=== PATIENT | male | born 1980 | race Caucasian/White ===

== ENCOUNTER 2020-03-28 21:13 | Emergency (ER) | payer OTHER ==
[2020-03-28] MEDS ORDERED: SODIUM CHLORIDE 0.9% 500 ML 500 ML IV STA (22:16)
[2020-03-28 22:53] LABS: Basophils # (A) 0.2 k/uL (0-0.2); Basophils % (A) 2 %; Eosinophils # (A) 0.2 k/uL (0-0.7); Eosinophils % (A) 3 %; HCT 47.8 % (39.0-53.0); HGB 16.3 gm/dL (13.0-17.5); Lymphocytes # (A) 2.6 k/uL (1.0-4.8); Lymphocytes % (A) 31 %; MCH 30.7 pg (25.0-35.0); MCHC 34.1 g/dL (31.0-37.0); Mean Platelet Volume 7.2; Monocytes # (A) 0.5 k/uL (0-1.0); Monocytes % (A) 6 %; Neutrophils # (A) 4.7 k/uL (1.3-7.7); Neutrophils % (A) 56 %; Platelet Count 257 k/uL (150-450); RBC 5.31 m/uL (4.30-5.90); RDW 12.4 % (11.5-15.5); WBC 8.3 k/uL (3.8-10.6)
[2020-03-28] MEDS ORDERED: SULFAMETHOX-TMP 800-160MG 1 EACH TAB PO STA (23:04)
--- NOTE | 2020-03-28 23:06 | ED ---
General Adult HPI - General Source: patient, RN notes reviewed, old records reviewed Mode of arrival: ambulatory Limitations: no limitations <Brandon Edwards - Last Filed: 03/28/20 23:14> <Raegan Sultana - Last Filed: 03/29/20 00:49> - General Chief complaint: Skin/Abscess/Foreign Body Stated complaint: Cellulitis Time Seen by Provider: 03/28/20 21:28 - History of Present Illness Initial comments: 39-year-old male patient with past medical history of a perirectal abscess number of years ago requiring IV antibiotics and incision drainage to ED. Patient reports that the last 6 months she's been having drainage in his perirectal region. Patient states that the hole is still open from the initial incision and drainage. Denies any other complaints. Systemic: Pt denies fatigue, fever/chills, rash. Pt denies weakness, night sweats, weight loss. Neuro: Pt denies headache, visual disturbances, syncope or pre-syncope. HEENT: Pt denies ocular discharge or irritation, otalgia, rhinorrhea, pharyngitis or notable lymphadenopathy. Cardiopulmonary: Pt denies chest pain, SOB, heart palpitations, dyspnea on exertion. Abdominal/GI: Pt denies abdominal pain, n/v/d. : Pt denies dysuria, burning w/ urination, frequency/urgency. Denies new onset urinary or bowel incontinence. MSK: Pt denies myalgia, loss of strength or function in extremities. Neuro: Pt denies new onset weakness, paresthesias. (Brandon Edwards) - Related Data Home Medications Medication Instructions Recorded Confirmed Clindamycin HCl 300 mg PO QID 07/28/15 07/28/15 Ketorolac [Toradol] 10 mg PO Q6HR PRN 07/28/15 07/28/15 Multivitamin [Men's Multi-Vitamin] 1 tab PO DAILY 07/28/15 07/28/15 Previous Rx's Medication Instructions Recorded HYDROcodone/APAP 7.5-325MG [Labolt 1 tab PO Q6HR PRN #28 tab 07/30/15 7.5-325] Cephalexin [Keflex] 500 mg PO Q6HR 14 Days cap 08/01/15 Amoxicillin/Potassium Clav 1 tab PO BID 7 Days #14 tab 03/29/20 [Augmentin 875-125 Tablet] Allergies Allergy/AdvReac Type Severity Reaction Status Date / Time No Known Allergies Allergy Verified 03/28/20 21:18 Review of Systems ROS Other: All systems not noted in ROS Statement are negative. <Brandon Edwards - Last Filed: 03/28/20 23:14> ROS Other: All systems not noted in ROS Statement are negative. <RdRaegan P - Last Filed: 03/29/20 00:49> ROS Statement: Those systems with pertinent positive or pertinent negative responses have been documented in the HPI. Past Medical History Past Medical History: No Reported History Additional Past Medical History / Comment(s): 07/27/15 Pt presented to [facility] ER with wound drainage and fever. He has cellulitis R buttock and was on aBX x 1 week-had cat sca which he states revealed no abscess and was then started on clindamycin. Pt has increased fever, redness and induration. His pain has also increased. Pt is admitted with clinical impression of perirectal abscess, cellulitis r buttock, sepsis. History of Any Multi-Drug Resistant Organisms: None Reported Past Surgical History: Orthopedic Surgery Additional Past Surgical History / Comment(s): L shoulder bone spur removal, R knee arthroscopy. Past Anesthesia/Blood Transfusion Reactions: No Reported Reaction Past Psychological History: No Psychological Hx Reported Smoking Status: Never smoker Past Alcohol Use History: Rare Past Drug Use History: None Reported - Past Family History Father Family Medical History: CVA/TIA Additional Family Medical History / Comment(s): Father had a TIA. He is 65 yrs old. Mother Additional Family Medical History / Comment(s): Mother has back problems, stomach problems. She is about 56 yrs old. <Brandon Edwards - Last Filed: 03/28/20 23:14> General Exam Limitations: no limitations <Brandon Edwards - Last Filed: 03/28/20 23:14> - General Exam Comments Initial Comments: Constitutional: NAD, AOX3, Pt has pleasant affect. HEENT: NC/AT, trachea midline, neck supple, no lymphadenopathy. Posterior pharynx non erythematous, without exudates. External ears appear normal, without discharge. Mucous membranes moist. Eyes PERRLA, EOM intact. There is no scleral icterus. No pallor noted. Cardiopulmonary: RRR, no murmurs, rubs or gallops, no JVD noted. Lungs CTAB in anterior and posterior bell. No peripheral edema. Abdominal exam: Abdomen soft and non-distended. Abdomen non-tender to palpation in all 4 quadrants. Bowel sounds active in LLQ. No hepatosplenomegaly. No ecchymosis Neuro: CN II-XII grossly intact. No nuchal rigidity. No raccon eyes, no poole sign, no hemotympanum. No cervical spinal tenderness. Rectal: Possible fistula noted in the left perirectal region. Small amount of erythema. There is some drainage noted. No fluctuance abscesses noted. (Brandon Edwards) Course Vital Signs 03/28/20 21:15 Temperature 99.2 F Pulse Rate 82 Respiratory 18 Rate Blood Pressure 128/83 O2 Sat by Pulse 96 Oximetry Medical Decision Making - Lab Data Result diagrams: 03/28/20 22:37 <Brandon Edwards - Last Filed: 03/28/20 23:14> - Lab Data Result diagrams: 03/28/20 22:37 03/28/20 22:37 <Raegan Sultana - Last Filed: 03/29/20 00:49> - Medical Decision Making 39 year old male patient to ED for possible fistula, ongoing for 6 months. signed out to Dr. Sultana pending workup. (Brandon Edwards) - Lab Data Lab Results 03/28/20 03/28/20 03/28/20 Range/Units 22:37 22:37 22:37 WBC 8.3 (3.8-10.6) k/uL RBC 5.31 (4.30-5.90) m/uL Hgb 16.3 (13.0-17.5) gm/dL Hct 47.8 (39.0-53.0) % MCV 90.0 (80.0-100.0) fL MCH 30.7 (25.0-35.0) pg MCHC 34.1 (31.0-37.0) g/dL RDW 12.4 (11.5-15.5) % Plt Count 257 (150-450) k/uL MPV 7.2 Neutrophils % 56 % Lymphocytes % 31 % Monocytes % 6 % Eosinophils % 3 % Basophils % 2 % Neutrophils # 4.7 (1.3-7.7) k/uL Lymphocytes # 2.6 (1.0-4.8) k/uL Monocytes # 0.5 (0-1.0) k/uL Eosinophils # 0.2 (0-0.7) k/uL Basophils # 0.2 (0-0.2) k/uL Sodium 140 (137-145) mmol/L Potassium 4.0 (3.5-5.1) mmol/L Chloride 105 (98-107) mmol/L Carbon Dioxide 28 (22-30) mmol/L Anion Gap 7 mmol/L BUN 19 (9-20) mg/dL Creatinine 1.00 (0.66-1.25) mg/dL Est GFR (CKD-EPI)AfAm >90 (>60 ml/min/1.73 sqM) Est GFR (CKD-EPI)NonAf >90 (>60 ml/min/1.73 sqM) Glucose 102 H (74-99) mg/dL Plasma Lactic Acid Nick (0.7-2.0) mmol/L Calcium 9.3 (8.4-10.2) mg/dL Total Bilirubin 0.3 (0.2-1.3) mg/dL AST 27 (17-59) U/L ALT 23 (4-49) U/L Alkaline Phosphatase 42 (38-126) U/L Total Protein 6.9 (6.3-8.2) g/dL Albumin 4.2 (3.5-5.0) g/dL Lipase 80 (23-300) U/L Urine Color Yellow Urine Appearance Clear (Clear) Urine pH 6.0 (5.0-8.0) Ur Specific [place] 1.034 (1.001-1.035) Urine Protein Trace H (Negative) Urine Glucose (UA) Negative (Negative) Urine Ketones Negative (Negative) Urine Blood Negative (Negative) Urine Nitrite Negative (Negative) Urine Bilirubin Negative (Negative) Urine Urobilinogen <2.0 (<2.0) mg/dL Ur Leukocyte Esterase Negative (Negative) 03/28/20 Range/Units 22:37 WBC (3.8-10.6) k/uL RBC (4.30-5.90) m/uL Hgb (13.0-17.5) gm/dL Hct (39.0-53.0) % MCV (80.0-100.0) fL MCH (25.0-35.0) pg MCHC (31.0-37.0) g/dL RDW (11.5-15.5) % Plt Count (150-450) k/uL MPV Neutrophils % % Lymphocytes % % Monocytes % % Eosinophils % % Basophils % % Neutrophils # (1.3-7.7) k/uL Lymphocytes # (1.0-4.8) k/uL Monocytes # (0-1.0) k/uL Eosinophils # (0-0.7) k/uL Basophils # (0-0.2) k/uL Sodium (137-145) mmol/L Potassium (3.5-5.1) mmol/L Chloride (98-107) mmol/L Carbon Dioxide (22-30) mmol/L Anion Gap mmol/L BUN (9-20) mg/dL Creatinine (0.66-1.25) mg/dL Est GFR (CKD-EPI)AfAm (>60 ml/min/1.73 sqM) Est GFR (CKD-EPI)NonAf (>60 ml/min/1.73 sqM) Glucose (74-99) mg/dL Plasma Lactic Acid Nick 1.6 (0.7-2.0) mmol/L Calcium (8.4-10.2) mg/dL Total Bilirubin (0.2-1.3) mg/dL AST (17-59) U/L ALT (4-49) U/L Alkaline Phosphatase (38-126) U/L Total Protein (6.3-8.2) g/dL Albumin (3.5-5.0) g/dL Lipase (23-300) U/L Urine Color Urine Appearance (Clear) Urine pH (5.0-8.0) Ur Specific [place] (1.001-1.035) Urine Protein (Negative) Urine Glucose (UA) (Negative) Urine Ketones (Negative) Urine Blood (Negative) Urine Nitrite (Negative) Urine Bilirubin (Negative) Urine Urobilinogen (<2.0) mg/dL Ur Leukocyte Esterase (Negative) Disposition <Brandon Edwards - Last Filed: 03/28/20 23:14> Is patient prescribed a controlled substance at d/c from ED?: No <Raegan Sultana - Last Filed: 03/29/20 00:49> Clinical Impression: Cellulitis of right buttock Disposition: HOME SELF-CARE Condition: Stable Referrals: Radha Decker MD [Primary Care Provider] - 1-2 days Nadir Pennington DO [Doctor of Osteopathic Medicine] - 1-2 days Juan Scott MD [REFERRING] - 1-2 days
[2020-03-28 23:19] LABS: ALT 23 U/L (4-49); AST 27 U/L (17-59); African American GFR (CKD) >90 (>60 ml/min/1.73 sqM); Albumin 4.2 g/dL (3.5-5.0); Alkaline Phosphatase 42 U/L (38-126); Anion Gap 7 mmol/L; Blood Urea Nitrogen 19 mg/dL (9-20); Calcium 9.3 mg/dL (8.4-10.2); Carbon Dioxide 28 mmol/L (22-30); Chloride 105 mmol/L (98-107); Glucose 102 mg/dL (74-99); Lipase 80 U/L (23-300); Non-African American GFR(CKD) >90 (>60 ml/min/1.73 sqM); Sodium 140 mmol/L (137-145); Total Bilirubin 0.3 mg/dL (0.2-1.3); Total Protein 6.9 g/dL (6.3-8.2)
[2020-03-28] MEDS ORDERED: AMOXIC-POT CLAV 875-125MG 1 EACH TAB PO STA (23:22)
--- NOTE | 2020-03-28 23:35 | CT ---
EXAMINATION TYPE: CT abdomen pelvis w con DATE OF EXAM: 03/28/2020 COMPARISON: None HISTORY: abcess CT DLP: 1093.1 mGycm Automated exposure control for dose reduction was used. CONTRAST: Performed with IV Contrast, patient injected with 100 mL of Isovue 300. Images were obtained from the diaphragm to the floor the pelvis. There is rectal contrast. FINDINGS: Lung bases are clear. There is no pleural effusion. Heart size is normal. There is no pericardial eff usion. There is 3 cm area of hypodensity in the superior right lobe of the liver that is probably a hemangio ma. This shows some delayed enhancement. Spleen stomach pancreas gallbladder appear normal. Bile ducts are not dilated. There is no adrenal mass. Kidneys show satisfactory contrast opacification. There is no hydronephrosi s. Ureters are not dilated. There is no retroperitoneal adenopathy. Appendix is short and appears nor mal. Bladder distends smoothly. There is no pelvic mass. There is no mesenteric edema. There is no ascites or free air. There is no evidence of a bowel obstru ction. There is some mild wall thickening of the mid sigmoid colon. There are a few sigmoid diverticula. The re is some mild increased subcutaneous density at the right side of the anus that measures 2.4 x 1.3 cm. The lumbar vertebra have normal alignment. Posterior elements are intact. There is no compression fra cture. The bony pelvis is intact. Hip joints are intact. IMPRESSION: There is small subcutaneous mass on the right side of the anus that could be a phlegmon or small absc ess. There is mild wall thickening of the sigmoid colon consistent with some hypertrophy. There are a few sigmoid diverticula without sign of diverticulitis.
[2020-03-29 00:16] LABS: Appearance,Urine Clear (Clear); Bilirubin,Urine Negative (Negative); Blood,Urine Negative (Negative); Color,Urine Yellow; Glucose,Urine (UA) Negative (Negative); Ketones,Urine Negative (Negative); Leukocyte Esterase,Urine Negative (Negative); Nitrite,Urine Negative (Negative); Protein,Urine Trace (Negative); Specific Gravity,Urine 1.034 (1.001-1.035); Urobilinogen,Urine <2.0 mg/dL (<2.0)
[2020-03-29 00:56] VITALS: BP 107/74; PULSE 76; RESP 16; TEMP 98.7
== END 2020-03-29 00:45 | disposition home or self-care (01) ==
LOC: EC 21:13
DX: L03.317 Cellulitis of buttock (principal)
CPT/HCPCS: 36415; 80053; 83605; 83690; 85025; 81003; 87040; 74177; 99284; 96360; Q9967 ×2